=== PATIENT | female | born 1955 | race African-American/Black ===

== ENCOUNTER → 2017-05-11 | Outpatient (CLI) | payer SELFPAY ==
[~2017-05-11] MED LIST: ESTRADIOL0.5 MG PO; FLONASE0.05 MG/AC NS; HYDR25T PO; HYDROCODONE BIT1 T11 PO; LISINOPRIL10 MG PO; PRILOSEC20 MG PO
== END | disposition home or self-care (01) ==
LOC: RAD 11:10
DX: Z11.1 Encounter for screening for respiratory tuberculosis (principal); R05 Cough; R09.89 Other specified symptoms and signs involving the circulatory and respiratory systems; I10 Essential (primary) hypertension

== ENCOUNTER → 2021-11-10 | Outpatient (CLI) | payer MEDICARE | LOC: MAMMO 10-13 16:30 | PROVIDERS: ATTEND Nurse Practitioner Family | DX: Z12.31 Encounter for screening mammogram for malignant neoplasm of breast (principal); N64.89 Other specified disorders of breast ==

== ENCOUNTER → 2023-09-15 | Outpatient (CLI) | payer MEDICARE | END | disposition home or self-care (01) | LOC: MAMMO 02:35 | PROVIDERS: ATTEND Nurse Practitioner Family | DX: Z12.31 Encounter for screening mammogram for malignant neoplasm of breast (principal); N64.89 Other specified disorders of breast ==

== ENCOUNTER → 2023-10-05 | Outpatient (CLI) | payer MEDICARE | END | disposition home or self-care (01) | LOC: MAMMO 13:00 | PROVIDERS: ATTEND Nurse Practitioner Family | DX: N60.01 Solitary cyst of right breast (principal); N63.10 Unspecified lump in the right breast, unspecified quadrant ==

== ENCOUNTER → 2024-09-13 | Outpatient (CLI) | payer OTHER | END | disposition home or self-care (01) | LOC: CT 01:36 | PROVIDERS: ATTEND Nurse Practitioner Family | DX: R91.1 Solitary pulmonary nodule (principal); I71.40 Abdominal aortic aneurysm, without rupture, unspecified; M19.011 Primary osteoarthritis, right shoulder; K44.9 Diaphragmatic hernia without obstruction or gangrene ==

== ENCOUNTER → 2024-10-15 | Outpatient (CLI) | payer OTHER | END | disposition home or self-care (01) | LOC: MAMMO 10-08 13:00 | PROVIDERS: ATTEND Nurse Practitioner Family | DX: Z12.31 Encounter for screening mammogram for malignant neoplasm of breast (principal); R92.313 Mammographic fatty tissue density, bilateral breasts ==

== ENCOUNTER → 2024-11-15 | Outpatient (CLI) | payer OTHER | LOC: RAD 12:45 | PROVIDERS: ATTEND Nurse Practitioner Family | DX: K59.00 Constipation, unspecified (principal) ==